=== PATIENT | male | born 1955 | race Caucasian/White ===

== ENCOUNTER → 2017-01-16 | Outpatient (CLI) | payer BC, OTHER ==
[~2017-01-16] MED LIST: ACETAMINOPHEN325 M1 PO; ADVAIR 250-501 EACH INH; ADVAIR 250-501 EACH PO; CRESTOR10 MG PO; CRESTOR20 MG PO; FENTANYL PA25 MCG/HR TP; FENTANYL PA25 MCG/HR TRANSDERM; HYDROCODON-ACE1 EAC7 PO; LEVOTHYROXIN0.125 M1 PO; LEVOTHYROXINE 0.15MG PO; LEVOXYL100 MCG PO; LIORESAL 10 MG10 MG PO; LIPITOR10 MG PO; MAG-AL PLUS SUS30 ML PO; MS CONTIN15 MG PO; NABUMETONE 500500 M1 PO; NUCYNTA100 MG PO; NUCYNTA50 MG PO; NUCYNTA75 MG PO; OMEPRAZOLE 20 M20 M1 PO; RELAFEN500 MG PO; TRIAMCINOLONE A80 G2 TOP; TUMS PO
[2017-01-16 08:53] LABS: CALCIUM 9.1 mg/dL (8.5-10.1); CREATININE 0.8 mg/dL (0.7-1.3)
[2017-01-16 08:59] LABS: ALBUMIN 3.9 g/dL (3.4-5.0); TOTAL BILIRUBIN 0.4 mg/dL (<0.1-1.0); TOTAL PROTEIN 7.1 g/dL (6.4-8.2)
== END ==
LOC: CAT 07:34 → LABMALL 07:34 → CAT 10:42
PROVIDERS: Family Medicine
DX: J44.9 Chronic obstructive pulmonary disease, unspecified (principal)

== ENCOUNTER → 2018-02-26 | Outpatient (CLI) | payer BC, OTHER | LOC: CAT 07:33 | DX: R19.5 Other fecal abnormalities (principal) ==

== ENCOUNTER → 2018-08-22 | Outpatient (CLI) | payer OTHER ==
[2018-08-22 08:23] LABS: CREATININE 0.8 mg/dL (0.7-1.3)
== END ==
LOC: CAT 08-11 13:11
PROVIDERS: Family Medicine
DX: J43.2 Centrilobular emphysema (principal); I25.10 Atherosclerotic heart disease of native coronary artery without angina pectoris; K76.89 Other specified diseases of liver; M47.814 Spondylosis without myelopathy or radiculopathy, thoracic region; E78.5 Hyperlipidemia, unspecified; E03.9 Hypothyroidism, unspecified; Z87.891 Personal history of nicotine dependence

== ENCOUNTER → 2018-11-28 | Outpatient (CLI) | payer OTHER | LOC: CAT 07:27 | DX: R63.4 Abnormal weight loss (principal); J43.9 Emphysema, unspecified; K76.89 Other specified diseases of liver; N28.1 Cyst of kidney, acquired; M47.816 Spondylosis without myelopathy or radiculopathy, lumbar region; K59.09 Other constipation; Z68.25 Body mass index [BMI] 25.0-25.9, adult ==

== ENCOUNTER → 2019-01-07 | Outpatient (CLI) | payer OTHER ==
[~2019-01-07] VITALS: Ht 177.8 cm; Wt 78.5 kg
[~2019-01-07] MED LIST changes: +LINZESS145 MCG PO
--- NOTE | 2019-01-09 10:31 | P ---
[facility] [place] [address] PROCEDURE REPORT Name: NOREEN GRIFFITH Erum Room #: REG [facility]#: [id number] Admission: 01/07/19 Attend Phys: Fernando Randolph Discharge: Date of : 51 Report #: [id number] THIS REPORT FOR: //name// CC: Fernando Flores MD DATE OF SERVICE: 01/07/2019 PROCEDURE PERFORMED: Upper endoscopy with biopsies. HISTORY OF PRESENT ILLNESS: The patient is a 63-year-old male with recent history of weight loss. Appetite has been good. He does have a history of gastroesophageal reflux disease, but denies any heartburn symptoms, not taking PPI therapy anymore. Denies any nausea or vomiting. He does complain of constipation. He had a colonoscopy in April of this year that was reportedly negative by different purchasing contracting clerk. The patient also had a CT scan of the abdomen and pelvis last month that was essentially negative other than emphysematous changes of the lungs. He denies any dysphagia. Plan is for upper endoscopy. DESCRIPTION OF PROCEDURE: The risks and benefits of the procedure were explained to the patient, those risks including, but not limited to bleeding, perforation, the risk of sedation. He understood these risks and gave informed consent. Sedation was given using propofol per anesthesia. Next, using an Olympus upper endoscope, the scope was placed in the patient's mouth and advanced under direct vision through the esophagus, stomach and into the second portion of the duodenum. The upper and mid esophagus was normal in appearance. In the distal esophagus, grade A erosive esophagitis was noted. Upon entering the stomach, a small hiatal hernia was noted. There was a mild gastritis noted in the fundus and the body of the stomach. Biopsies were obtained to rule out H. pylori. The gastric antrum was normal. The pylorus was normal and patent. The duodenal bulb, first and second portion were all normal. Random biopsies of the duodenum were also obtained to rule out the possibility of celiac sprue. The scope was then withdrawn and the procedure terminated. The patient tolerated the procedure well. IMPRESSION: 1. Grade A erosive esophagitis. 2. Small hiatal hernia. 3. Mild gastritis. 4. Otherwise, normal upper endoscopy. RECOMMENDATIONS: 1. Await biopsy results. 2. Would recommend a trial of daily PPI therapy. [address] [address] PROCEDURE REPORT Name: NOREEN GRIFFITH Room #: REG KAYLEEN Guzman#: [id number] Admission: 01/07/19 Attend Phys: Fernando Randolph Discharge: Date of : 51 Report #: [id number] Thank you for allowing me to participate in his care. <ELECTRONICALLY SIGNED> By: Fernando Paz MD 01/09/19 1031 1001 0027 Fernando Paz MD /nt
--- NOTE | 2019-01-12 15:07 | PATH ---
[facility] [address] [address] PATHOLOGY RPT PROCEDURE Name: YOUNG FULLER Erum Room #: REG KAYLEEN Rhonda.#: [id number] Admission: 01/07/19 Date of : 51 Discharge: Report #: [id number] Path Case #: [id number] [facility] Accession Number: [id number] . 01 Material submitted: . PART A: duodenum - BIOPSY DUODENUM PART B: stomach - BIOPSY GASTRITIS R/O H PYLORI . 01 Clinical history: . Preop DX: wt loss, reflux Postop DX: gastritis, esophagitis A. R/O sprue B. R/O H. pylori . 02 Diagnosis: A. Small bowel mucosa, duodenum, endoscopic biopsy: - Mild non-specific chronic inflammation. - Negative for villous blunting or increase in intra-epithelial lymphocytes. . B. Gastric mucosa, gastritis rule out H. pylori, endoscopic biopsy: - Mild chronic inflammation. - Negative for intestinal metaplasia or atrophy. - Negative for Helicobacter pylori (properly controlled immunohistochemical stain performed). (IUV/db; 01/09/2019) LBQ 01/09/2019 1322 Local . 02 Electronically signed: . Maxine Ramirez MD, Pathologist NPI- [id number] . 01 Gross description: . A. Received in formalin labeled "Young Fuller Bx duodenum R/O sprue," are four segments of us soft tissue measuring 0.6 x 0.5 x 0.2 cm in aggregate dimensions and measuring 0.3 cm each in maximum dimension. The specimen is submitted entirely in cassette A1. . B. Received in formalin labeled "Young Fuller Bx gastritis R/O H. pylori," are three segments of us-brown soft tissue measuring 0.6 x 0.5 x 0.2 cm in aggregate dimensions and ranging from 0.3 to 0.6 cm in maximum dimension. The specimen is submitted entirely in cassette B1. ([facility]; 01/08/2019) XNJ/XNJ 01/08/2019 104 Local . 02 Pathologist provided ICD-10: K29.80, K29.[address] [address] PATHOLOGY RPT PROCEDURE Name: YOUNG FULLER Room #: REG CLI Thomas#: [id number] Admission: 01/07/19 Date of : 51 Discharge: Report #: [id number] Path Case #: [id number] . [address] [facility] . [id number], [id number], [id number] Specimen Comment: A courtesy copy of this report has been sent to Specimen Comment: [phone], . Specimen Comment: Report sent to / DR CENTENO Performed at: [address], [place] [id number] MD Jerome Villalta MD Phone: [phone] Performed at: [address] [id number] MD Maxine Ramirez MD Phone: [phone]
== END | disposition home or self-care (01) ==
LOC: GI 07:34
DX: K29.80 Duodenitis without bleeding (principal); K29.50 Unspecified chronic gastritis without bleeding; K20.9 Esophagitis, unspecified; K44.9 Diaphragmatic hernia without obstruction or gangrene; E78.5 Hyperlipidemia, unspecified; K21.9 Gastro-esophageal reflux disease without esophagitis; F17.210 Nicotine dependence, cigarettes, uncomplicated; Z90.49 Acquired absence of other specified parts of digestive tract; Z98.890 Other specified postprocedural states; Z79.899 Other long term (current) drug therapy
CPT/HCPCS: 62110; 62900

== ENCOUNTER → 2019-06-01 | Outpatient (CLI) | payer OTHER | LOC: CAT 07:33 | DX: Z12.2 Encounter for screening for malignant neoplasm of respiratory organs (principal); I25.10 Atherosclerotic heart disease of native coronary artery without angina pectoris; E78.00 Pure hypercholesterolemia, unspecified; I70.0 Atherosclerosis of aorta; J43.8 Other emphysema ==

== ENCOUNTER → 2020-06-02 | Outpatient (CLI) | payer OTHER | LOC: CAT 07:52 → EDSTATUS 13:41 | PROVIDERS: ATTEND Family Medicine | DX: J43.9 Emphysema, unspecified (principal); I25.10 Atherosclerotic heart disease of native coronary artery without angina pectoris; M47.814 Spondylosis without myelopathy or radiculopathy, thoracic region; K76.89 Other specified diseases of liver; F17.210 Nicotine dependence, cigarettes, uncomplicated ==

== ENCOUNTER → 2020-07-27 | Outpatient (CLI) | payer OTHER | LOC: SJCVC 14:11 | PROVIDERS: ATTEND Internal Medicine | DX: R93.1 Abnormal findings on diagnostic imaging of heart and coronary circulation (principal); I45.10 Unspecified right bundle-branch block; J44.9 Chronic obstructive pulmonary disease, unspecified; Z98.890 Other specified postprocedural states; Z79.899 Other long term (current) drug therapy; Z87.891 Personal history of nicotine dependence ==

== ENCOUNTER → 2020-08-31 | Outpatient (CLI) | payer OTHER | LOC: SJCVCIMAG 07:19 | PROVIDERS: ATTEND Internal Medicine | DX: E78.2 Mixed hyperlipidemia (principal); I77.811 Abdominal aortic ectasia; R93.1 Abnormal findings on diagnostic imaging of heart and coronary circulation; I45.10 Unspecified right bundle-branch block; J44.9 Chronic obstructive pulmonary disease, unspecified; I25.10 Atherosclerotic heart disease of native coronary artery without angina pectoris; I10 Essential (primary) hypertension; F17.200 Nicotine dependence, unspecified, uncomplicated; Z98.890 Other specified postprocedural states; Z79.899 Other long term (current) drug therapy ==

== ENCOUNTER → 2020-10-12 | Outpatient (CLI) | payer OTHER | LOC: SJCVC 13:47 | PROVIDERS: ATTEND Internal Medicine | DX: E78.2 Mixed hyperlipidemia (principal); R93.1 Abnormal findings on diagnostic imaging of heart and coronary circulation; I45.10 Unspecified right bundle-branch block; J44.9 Chronic obstructive pulmonary disease, unspecified; E89.0 Postprocedural hypothyroidism; I25.10 Atherosclerotic heart disease of native coronary artery without angina pectoris; F17.200 Nicotine dependence, unspecified, uncomplicated; Z79.899 Other long term (current) drug therapy ==

== ENCOUNTER → 2020-11-02 | Outpatient (CLI) | payer OTHER ==
[2020-11-02 13:39] LABS: CREATININE 0.9 mg/dL (0.7-1.3)
== END ==
LOC: CAT 13:00
PROVIDERS: ATTEND Nurse Practitioner
DX: K76.89 Other specified diseases of liver (principal)

== ENCOUNTER → 2020-12-01 | Outpatient (CLI) | payer OTHER ==
[~2020-12-01] VITALS: Ht 177.8 cm; Wt 83.9 kg
[~2020-12-01] MED LIST changes: -LEVOTHYROXINE 0.15MG PO; -LIPITOR10 MG PO; +LIPITOR80 MG PO; +SYNTHROID125 MC1 PO
[2020-12-01 14:24] VITALS: BP 112/67
--- NOTE | 2020-12-01 14:54 | NUR ---
Pain Clinic Assessment: 1. History of Osteoarthritis: NECK SHOULDER History of Rheumatoid Arthritis: DENIES 2. Height: 5 ft. 10 in. 177.8 cm. Weight: 185.0 lb. oz. 83.916 kg. Patient's BMI: 26.5 3. Vital Signs: BP: 112/67 Pulse: 72 Resp: 16 Temp: 02 Sat: 96 ECG Mon: 4. Pain Intensity: 5 TO 10 5. Fall Risk: Dizziness: N Needs help standing or walking: N Fallen in the last 3 months: N Fall risk comments: 6. Patient on Blood Thinner: None 7. History of Hypertension: N 8. Opioid Therapy greater than 6 weeks: Y Opiate Contract Signed: 9. Risk Assessment Tool Provided: LOW-1 10. Functional Assessment Tool: 43/ 11. Recreational Drug Use: Never Drug Type: Tobacco Use: Current Every Day Smoker Tobacco Type: Cigarettes Amount or Packs/day: 2 PKS/DAY How Many Years: Alcohol Use: No Frequency: Quant:
== END ==
LOC: PAIN 13:08
PROVIDERS: ATTEND Anesthesiology Pain Medicine
DX: M47.812 Spondylosis without myelopathy or radiculopathy, cervical region (principal); Z79.899 Other long term (current) drug therapy; Z79.891 Long term (current) use of opiate analgesic

== ENCOUNTER → 2021-04-19 | Outpatient (CLI) | payer BC | LOC: CAT 09:21 | PROVIDERS: ATTEND Family Medicine | DX: R22.1 Localized swelling, mass and lump, neck (principal) ==